=== PATIENT | female | born 1935 | race Two or more races ===

== ENCOUNTER 2018-11-18 09:06 | Emergency (ER) | payer OTHER ==
[~2018-11-18] VITALS: Ht 152.4 cm; Wt 77.1 kg
[2018-11-18 09:22] VITALS: BP 153/72
[2018-11-18 11:36] LABS: Basophils # (auto) 0.1 uL; Basophils % (auto) 0.8 % (0.0-2.0); Eosinophils # (auto) 0.4 uL; Eosinophils % (auto) 4.9 % (0.0-7.0); Hematocrit 36.1 % (36.0-46.0); Hemoglobin 11.6 g/dL (12.2-16.2); Lymphocytes # (auto) 1.7 uL; Lymphocytes % (auto) 23.5 % (10.0-50.0); Mean Corpuscular Hemoglobin 29.1 pg (28.0-32.0); Mean Corpuscular Hgb Conc. 32.2 g/dL (32.0-36.0); Mean Corpuscular Volume 90.2 fL (80.0-100.0); Monocytes # (auto) 0.8 uL; Monocytes % (auto) 10.4 % (0.0-12.0); Neutrophils # (auto) 4.5 uL; Neutrophils % (auto) 60.4 % (37.0-80.0); Platelet Count (auto) 185 10^3/uL (140-450); Red Cell Distribution Width 14.1 % (11.8-14.3); White Blood Cell 7.4 10^3/uL (4.4-10.8)
[2018-11-18 11:54] LABS: Potassium 4.5 mmol/L (3.5-5.1)
[2018-11-18 12:20] LABS: Albumin 3.5 g/dL (3.4-5.0); Bilirubin, Total 0.4 mg/dL (0.2-1.0); Calcium 8.9 mg/dL (8.5-10.1); Total Protein 7.1 g/dL (6.4-8.2)
== END 2018-11-18 16:18 | disposition left against medical advice (07) ==
LOC: ER 09:09
DX: R10.30 Lower abdominal pain, unspecified (principal); R30.0 Dysuria
CPT/HCPCS: 36415; 80053; 85025

== ENCOUNTER 2022-09-09 14:39 | Emergency (ER) | payer OTHER ==
[2022-09-09 15:25] VITALS: BP 151/51
== END 2022-09-09 16:40 | disposition home or self-care (01) ==
LOC: ER 14:40
DX: T83.028A Displacement of other urinary catheter, initial encounter (principal)
CPT/HCPCS: 51702